=== PATIENT | male | born 1955 | race Two or more races ===

== ENCOUNTER 2021-03-24 11:33 | Emergency (ER) | payer SELFPAY ==
[~2021-03-24] VITALS: Ht 177.8 cm; Wt 77.1 kg
[2021-03-24] MEDS ORDERED: SODIUM CHLORIDE 0.9% 1,000 ML IVB ONE (13:00)
[2021-03-24 13:28] VITALS: BP 138/80
== END 2021-03-24 15:45 | disposition left against medical advice (07) ==
LOC: ER 11:33 → EDBD 11:33 → ER 13:43
DX: F10.920 Alcohol use, unspecified with intoxication, uncomplicated (principal); Z53.21 Procedure and treatment not carried out due to patient leaving prior to being seen by health care provider